=== PATIENT | male | born 1995 | race Caucasian/White ===

== ENCOUNTER 2022-02-06 07:07 | Emergency (ER) | payer BC ==
[2022-02-06 08:48] LABS: #Eosinphils 0.1 10x3/uL (0.0-0.5); #Neutrophils 8.4 10x3/uL (1.5-8.4); %Basophils 0.3 % (0.0-2.0); %Eosinophils 0.6 % (0.0-6.0); %Lymphocytes 7.3 % (18.0-47.0); %Neutrophils 81.5 % (40.0-75.0); Hemoglobin 14.4 g/dL (13.5-17.5); Mean Corpuscular HGB CONC 35.3 g/dL (32.0-36.0); Mean Corpuscular Hemoglobin 30.6 pg (27.0-33.0); Mean Corpuscular Volume 86.6 fl (81.2-95.1); Mean Platelet Volume 11.3 fl (7.4-10.4); Platelet Count 183 10x3/uL (150-450); Red Blood Cell (RBC) Count 4.71 10x6/uL (4.32-5.72); White Blood Cell (WBC) Count 10.3 10x3/uL (3.5-10.5)
[2022-02-06 09:02] LABS: ALT (SGPT) 9 U/L (8-55); AST (SGOT) 18 U/L (5-34); Albumin 4.6 g/dL (3.5-5.0); Alkaline Phosphatase 44 U/L (40-110); Anion Gap 17 mmol/L (10-20); BUN (Urea Nitrogen) 13 mg/dL (8.9-20.6); Calc. Creatinine Clearance 0 mL/min (70-130); Calcium 10.1 mg/dL (7.8-10.44); Carbon Dioxide 22 mmol/L (22-29); Chloride 102 mmol/L (98-107); Estimated GFR 117; Glucose 96 mg/dL (70-105); Potassium 4.4 mmol/L (3.5-5.1); Protein, Total 7.6 g/dL (6.0-8.3); Sodium 137 mmol/L (136-145)
[2022-02-06] MEDS ORDERED: Ketorolac Tromethamine 30 MG/ML VIAL ONE (09:43)
[2022-02-06] MEDS ORDERED: Iopamidol 300 61% 100 ML VIAL FS ONE (14:36)
== END 2022-02-06 10:00 | disposition home or self-care (01) ==
LOC: CSHERS 07:07
DX: K04.7 Periapical abscess without sinus (principal); R25.2 Cramp and spasm
CPT/HCPCS: 70491; 80053; 85025; 96374; J1885; Q9967

== ENCOUNTER 2023-07-24 09:02 | Emergency (ER) | payer BC ==
[2023-07-24] MEDS ORDERED: Ketorolac Tromethamine 30 MG (1 mL) VIAL ONE (09:47)
[2023-07-24] MEDS ORDERED: Morphine 4 MG/ML VIAL ONE (09:47)
[2023-07-24] MEDS ORDERED: predniSONE 20 MG TAB ONE (09:48)
== END 2023-07-24 11:10 | disposition home or self-care (01) ==
LOC: CSHERS 09:02
DX: M51.26 Other intervertebral disc displacement, lumbar region (principal)
CPT/HCPCS: 96372; 99283; J1885; J2270; J7512